=== PATIENT | male | born 1990 | race Caucasian/White ===

== ENCOUNTER → 2020-02-03 | Day surgery (SDC) | payer SELFPAY ==
[~2020-02-03] MED LIST: MELO15TA6 PO; PROPOFOL 10 MG/ML (20ML) VIAL. IV ONE
--- NOTE | 2020-02-03 22:06 | PDOC ---
GI PROGRESS NOTES Date Date/Time DATE: 02/03/20 TIME: 22:03 Subjective Subjective Acute onset esophageal obstruction after eating a large bite of steak today. Never had a similar episode. Denies prior dysphasia or heartburn. Has been unable to control secretions for the last several hours. Was transferred here from [facility] emergency room for endoscopic removal of the food bolus. He denies any other chronic medical problems. Imaging Imaging Chest x-ray reported from [facility] emergency room as being negative Physical Exam Physical Exam Alert Neck supple without thyromegaly or adenopathy Chest clear Heart regular rate and rhythm Abdomen soft nontender no organomegaly or masses Assessment Assessment Acute esophageal food bolus obstruction. Ate a piece of steak earlier and has not been unable to swallow his secretions suggestive of a persistent distal esophageal food bolus. No prior history to suggest peptic esophagitis or stricture but certainly those are possible. Plan Plan Proceed with sedation and endoscopic removal of the food bolus and evaluate for any strictures or other abnormalities. Justicifation of Admission Dx: Justifications for Admission: Justification of Admission Dx: No BEAR SINGLETON MD Feb 03, 2020 22:06
--- NOTE | 2020-02-03 22:20 | PDOC4 ---
PROCEDURE Procedure EGD Acute food bolus obstruction of esophagus Anesthesia with propofol Findings: E- subtle rings and meal food bolus in distal esophagus- pushed through into stomach- then passed 54 Rousseau dilator S- normal D- mild duodenitis without ulcer Plan- Pantoprazole 40 mg daily for one month repeat EGD with dilation in 2 months BEAR SINGLETON MD Feb 03, 2020 22:20
[2020-02-03 22:50] VITALS: BP 152/68
== END | disposition home or self-care (01) ==
LOC: EEVIPCON 21:58 → SDC 21:58
PROVIDERS: ATTEND Internal Medicine Gastroenterology
DX: K22.2 Esophageal obstruction (principal); K21.0 Gastro-esophageal reflux disease with esophagitis; Z88.8 Allergy status to other drugs, medicaments and biological substances
CPT/HCPCS: 43247; 43450; J2704; 43235